=== PATIENT | female | born 1970 | race African-American/Black ===

== ENCOUNTER 2018-03-15 13:07 | Outpatient (CLI) | payer OTHER ==
[2018-03-15 15:24] VITALS: BP 119/93
[2018-03-15] MEDS ORDERED: AMLODIPINE BESY10 MG ORAL (15:27)
[2018-03-15] MEDS ORDERED: OMEPRAZOLE20 M2 ORAL (15:27)
[2018-03-15] MEDS ORDERED: VITAMIN D400 INTLU ORAL (15:27)
[2018-03-15] MEDS ORDERED: HYDROCODON PO (15:27)
[2018-03-15] MEDS ORDERED: MULTIVITAMINS1 EAC2 ORAL (15:27)
[2018-03-15] MEDS ORDERED: GABAPENTIN300 MG ORAL (15:27)
--- NOTE | 2018-03-15 23:12 | GI Initial Consult Note ---
History of Present Illness General Date patient seen: Mar 15, 2018 Time patient seen: 13:00 Referring physician: HMO Reason for Consultation: GERD Present Illness HPI A 48 year old female presents to the clinic, c/o GERD. Patient has hx of GERD for 10 years. Has been c/o constant epigastric pain, currently taking omeprazole 20mg with minimal relief. Patient's dietary habit includes very acidic types of food and admits to eating excess amounts. Patient has no hx of endoscopy/colonoscopy. Denies any unintentional weight loss or changes in dietary habits. No signs of abuse or neglect. Patient is not fall risk. Home Meds Reported Medications [Hydrocodon] No Conflict Check, 10 MG PO PRN 03/15/18 Omeprazole (OMEPRAZOLE) 20 Mg Capsule.dr, 20 MG ORAL DAILY, CAP 03/15/18 Multivitamins* (MULTIVITAMINS*) 1 Each Tablet, 1 TAB ORAL DAILY, TAB 0 Refills 03/15/18 Vitamin D (Vitamin D3) 400 Unit Tablet, 2000 UNITS ORAL DAILY, TAB 03/15/18 Gabapentin* (GABAPENTIN*) 300 Mg Capsule, 300 MG ORAL BEDTIME, CAP 03/15/18 Amlodipine Besylate* (AMLODIPINE BESYLATE*) 10 Mg Tablet, 10 MG ORAL DAILY, TAB 03/15/18 Med list reviewed/reconciled: Yes Allergies: Coded Allergies: No Known Allergies (Unverified , 03/15/18) Patient History History Provided By: Patient, Medical Record [facility] Narrative GERD HTN Past Surgical History: Tubal ligation Cholecystectomy Hysterectomy Past Surgical History: other Pertinent Family History: none Social History: Reports: alcohol use - social use Review of Systems All Other Systems: negative except mentioned in HPI Physical Exam Vital Signs Date Time Temp Pulse Resp B/P (MAP) Pulse Ox O2 Delivery O2 Flow Rate FiO2 03/15/18 15:24 98.4 82 119/93 96 Sp02 EP Interpretation: reviewed, normal General Appearance: well appearing, no apparent distress, alert Head: normocephalic EENT: PERRL/EOMI, normal ENT inspection Neck: supple Respiratory: normal breath sounds, no respiratory distress Cardiovascular: normal rate Gastrointestinal: normal inspection, non tender, soft, normal bowel sounds, non -distended Rectal: deferred Genitourinary: no CVA tenderness Musculoskeletal: normal inspection, back normal Neurologic: normal inspection, alert, oriented x3, responsive Psychiatric: normal inspection, judgement/insight normal, memory normal Skin: normal inspection, normal color, no rash, warm/dry, palpation normal, well hydrated Lymphatic: normal inspection, no adenopathy GI: Plan Problems: (1) Chronic GERD (2) HTN (hypertension) Plan Patient needs EGD for chronic GERD, pending PA, will contact patient. Continue omeprazole 20mg Dietary education given. Patient needs initial coloscopy in near future. Will follow up additional recs post procedure. Seen with Dr. Brown. Thank you for this patient referral. The patient was seen and examined at bedside and all new and available data was reviewed in the patients chart. I agree with the above findings, impression and plan. (Patient seen earlier today. Signature stamp does not reflect patient encounter time.). - MD Sommer Due[facility]Cle[facility] Mar 15, 2018 23:12
== END 2018-03-15 13:37 | disposition home or self-care (01) ==
LOC: PAN 13:07
DX: K21.9 Gastro-esophageal reflux disease without esophagitis (principal); I10 Essential (primary) hypertension; Z90.710 Acquired absence of both cervix and uterus; Z90.49 Acquired absence of other specified parts of digestive tract
CPT/HCPCS: 99202

== ENCOUNTER 2020-05-01 10:11 | Outpatient (CLI) | payer OTHER ==
[~2020-05-01 10:11] MED LIST: AMLODIPINE BESY10 MG ORAL; GABAPENTIN300 MG ORAL; HYDROCODON PO; MULTIVITAMINS1 EAC2 ORAL; OMEPRAZOLE20 M2 ORAL; VITAMIN D400 INTLU ORAL
--- NOTE | 2020-05-05 11:00 | General Progress Note ---
Subjective ROS Limited/Unobtainable: Yes Allergies: Coded Allergies: No Known Allergies (Unverified , 03/15/18) Objective General Appearance: alert EENT: normal ENT inspection Neck: supple Cardiovascular: normal rate Respiratory/Chest: decreased breath sounds Abdomen: normal bowel sounds, non tender, soft Extremities: non-tender Assessment/Plan Assessment/Plan: chronic GERD screening colon eval plan EGD and colonoscopy Giovanni Brown MD May 05, 2020 11:00
== END 2020-05-01 12:11 | disposition home or self-care (01) ==
LOC: PAN 10:11
DX: K21.9 Gastro-esophageal reflux disease without esophagitis (principal)
CPT/HCPCS: 99212